=== PATIENT | male | born 1930 | race Caucasian/White ===

== ENCOUNTER → 2017-01-13 | Outpatient (CLI) | payer MEDICARE ==
[~2017-01-13] MED LIST: AMOXICILLIN500 M2 PO; ASPIRIN81 M1 PO; CARDIZEM CD240 MG PO; CARTIA XT240 MG PO; CO Q-1010 MG PO; DICLOFENAC NA25 MG PO; DILTIAZEM HCL240 M1 PO; FISH OIL500 M1 PO; FLOMAX0.4 MG PO; KEFLEX500 M1 PO; KLOR-CON M2020 MEQ PO; LASIX40 MG PO; LISINOPRIL10 MG PO; LOPRESSOR PO; LOPRESSOR25 MG PO; MIRALAX POWDER17 G1 PO; NEURONTIN100 MG PO; NORCO 5-325 TA1 EACH PO; OMEPRAZOLE20 M2 PO; OSTEO BI-FLEX1 EACH PO; PLAVIX75 M1 PO; PLAVIX75 MG PO; PRAVASTATIN SOD40 MG PO; TAMIFLU 75MG CA75 MG PO
[2017-01-13 11:07] LABS: BASO # 0.1 10*3/uL (0.0-0.1); BASO % 0.7 % (0.0-1.0); EOS # 0.1 10*3/uL (0.0-0.4); EOS % 1.7 % (1.0-4.0); HEMATOCRIT 50.4 % (42.0-52.0); HEMOGLOBIN 16.8 g/dl (14.0-18.0); LYMPH # 1.6 10*3/uL (1.3-4.4); LYMPH % 21.7 % (27.0-41.0); MEAN CELL VOLUME 90.3 fl (80.0-94.0); MEAN CORPUSCULAR HGB 30.1 pg (27.0-31.0); MEAN CORPUSCULAR HGB CONC 33.3 g/dl (33.0-37.0); MEAN PLATELET VOLUME 11.4 fl (9.6-12.3); MONO # 0.6 10*3/uL (0.1-1.0); MONO % 8.3 % (3.0-9.0); NEUT # 5.1 10*3/uL (2.3-7.9); NEUT % 67.1 % (47.0-73.0); PLATELET COUNT AUTOMATED 161 10*3/uL (130-400); RED BLOOD COUNT 5.58 10*6/uL (4.50-5.90); RED CELL DISTRI WIDTH 14.2 % (0-14.5); WHITE BLOOD COUNT 7.6 10*3/uL (4.8-10.8)
[2017-01-13 11:35] LABS: BUN 19 mg/dl (7-24); CARBON DIOXIDE 30 mmol/L (21-32); CHLORIDE 108 mmol/L (98-107); EST GLOM FILT AFRICAN AMERICAN > 60 ml/min; FREE T4 1.04 ng/dl (0.76-1.46); GLUCOSE 111 mg/dL (65-99); POTASSIUM 4.1 mmol/L (3.5-5.1); SODIUM 145 mmol/L (136-145)
[2017-01-14 08:19] LABS: PROSTATE SPECIFIC AG FREE 3.16 ng/mL; PSA % FREE 21.4 % (.)
== END | disposition home or self-care (01) ==
LOC: LAB 10:34
PROVIDERS: Internal Medicine
DX: I10 Essential (primary) hypertension (principal); N40.0 Benign prostatic hyperplasia without lower urinary tract symptoms; E03.9 Hypothyroidism, unspecified

== ENCOUNTER → 2017-05-04 | Outpatient (CLI) | payer MEDICARE ==
[2017-05-04 12:17] LABS: POTASSIUM 4.2 mmol/L (3.5-5.1)
[2017-05-05 08:11] LABS: PROSTATE SPECIFIC AG FREE 3.21 ng/mL; PSA % FREE 21.8 % (.)
== END | disposition home or self-care (01) ==
LOC: LAB 11:37
PROVIDERS: Internal Medicine
DX: I10 Essential (primary) hypertension (principal); N40.0 Benign prostatic hyperplasia without lower urinary tract symptoms

== ENCOUNTER → 2017-05-23 | Outpatient (CLI) | payer MEDICARE | END | disposition home or self-care (01) | LOC: CT 07:49 | DX: K57.30 Diverticulosis of large intestine without perforation or abscess without bleeding (principal); N28.89 Other specified disorders of kidney and ureter; I25.10 Atherosclerotic heart disease of native coronary artery without angina pectoris; N28.1 Cyst of kidney, acquired; Q25.46 Tortuous aortic arch; K40.90 Unilateral inguinal hernia, without obstruction or gangrene, not specified as recurrent; M47.899 Other spondylosis, site unspecified; M41.80 Other forms of scoliosis, site unspecified ==

== ENCOUNTER → 2017-07-30 | Outpatient (CLI) | payer MEDICARE ==
[2017-07-30 11:45] LABS: BUN 22 mg/dl (7-24); CHLORIDE 103 mmol/L (98-107); CREATININE 1.16 mg/dL (0.70-1.30); PHOSPHOROUS 2.6 mg/dL (2.5-4.9); SODIUM 142 mmol/L (136-145)
== END | disposition home or self-care (01) ==
LOC: LAB 11:05
PROVIDERS: Internal Medicine
DX: N18.3 Chronic kidney disease, stage 3 (moderate) (principal)

== ENCOUNTER 2017-09-26 18:36 | Emergency (ER) | payer MEDICARE ==
[~2017-09-26] VITALS: Wt 82.6 kg
[2017-09-26 19:22] LABS: BASO # 0.1 10*3/uL (0.0-0.1); BASO % 0.6 % (0.0-1.0); EOS # 0.1 10*3/uL (0.0-0.4); EOS % 1.1 % (1.0-4.0); HEMATOCRIT 48.2 % (42.0-52.0); HEMOGLOBIN 16.5 g/dl (14.0-18.0); LYMPH # 1.4 10*3/uL (1.3-4.4); LYMPH % 16.4 % (27.0-41.0); MEAN CELL VOLUME 89.4 fl (80.0-94.0); MEAN CORPUSCULAR HGB 30.6 pg (27.0-31.0); MEAN CORPUSCULAR HGB CONC 34.2 g/dl (33.0-37.0); MEAN PLATELET VOLUME 12.4 fl (9.6-12.3); MONO # 0.8 10*3/uL (0.1-1.0); MONO % 9.7 % (3.0-9.0); NEUT % 71.7 % (47.0-73.0); PLATELET COUNT AUTOMATED 206 10*3/uL (130-400); RED BLOOD COUNT 5.39 10*6/uL (4.50-5.90); RED CELL DISTRI WIDTH 13.9 % (0-14.5); WHITE BLOOD COUNT 8.4 10*3/uL (4.8-10.8)
[2017-09-26 20:02] LABS: ALBUMIN 3.5 gm/dl (3.1-4.5); ALKALINE PHOSPHATASE 86 U/L (45-117); BUN 20 mg/dl (7-24); CHLORIDE 106 mmol/L (98-107); CREATININE 1.09 mg/dL (0.70-1.30); LIPASE 204 U/L (73-393); SGOT/AST 15 IU/L (3-35); SGPT/ALT 17 U/L (12-78); SODIUM 141 mmol/L (136-145); TOTAL PROTEIN 6.6 gm/dL (6.4-8.2)
[2017-09-26 21:18] LABS: BILIRUBIN NEGATIVE (NEGATIVE); BLOOD NEGATIVE (NEGATIVE); CLARITY CLEAR (CLEAR); COLOR YELLOW (YELLOW); GLUCOSE NEGATIVE (NEGATIVE); KETONE NEGATIVE (NEGATIVE); LEUKO ESTERASE 1+ (NEGATIVE); NITRITE NEGATIVE (NEGATIVE); SPECIFIC GRAVITY 1.015 (1.005-1.030); UROBILINOGEN 0.2 E.U./dl (0.2-1.0)
[2017-09-26] MEDS ORDERED: AMINOPHYLLIN200 MG PO (21:43)
[2017-09-26] MEDS ORDERED: NORCO 5-325 TA1 EACH PO (21:43)
== END 2017-09-26 21:49 | disposition home or self-care (01) ==
LOC: ED 18:36
PROVIDERS: Physician Assistant
DX: N39.0 Urinary tract infection, site not specified (principal); M54.5 Low back pain; Z79.899 Other long term (current) drug therapy

== ENCOUNTER → 2017-12-01 | Outpatient (CLI) | payer MEDICARE ==
[~2017-12-01] MED LIST changes: +AMINOPHYLLIN200 MG PO
[2017-12-01 10:52] LABS: BASO % 0.5 % (0.0-1.0); EOS # 0.1 10*3/uL (0.0-0.4); EOS % 0.9 % (1.0-4.0); HEMATOCRIT 50.9 % (42.0-52.0); HEMOGLOBIN 16.7 g/dl (14.0-18.0); LYMPH # 1.2 10*3/uL (1.3-4.4); LYMPH % 16.2 % (27.0-41.0); MEAN CELL VOLUME 92.9 fl (80.0-94.0); MEAN CORPUSCULAR HGB 30.5 pg (27.0-31.0); MEAN CORPUSCULAR HGB CONC 32.8 g/dl (33.0-37.0); MEAN PLATELET VOLUME 10.8 fl (9.6-12.3); MONO # 0.6 10*3/uL (0.1-1.0); MONO % 8.3 % (3.0-9.0); NEUT # 5.5 10*3/uL (2.3-7.9); NEUT % 73.4 % (47.0-73.0); PLATELET COUNT AUTOMATED 143 10*3/uL (130-400); RED BLOOD COUNT 5.48 10*6/uL (4.50-5.90); RED CELL DISTRI WIDTH 13.5 % (0-14.5); WHITE BLOOD COUNT 7.5 10*3/uL (4.8-10.8)
[2017-12-01 11:26] LABS: CREATININE 1.46 mg/dL (0.70-1.30); POTASSIUM 4.4 mmol/L (3.5-5.1); TOTAL PROTEIN 7.3 gm/dL (6.4-8.2)
[2017-12-02 15:04] LABS: ANA DIRECT Negative (Negative); ANTISCLERODERMA-70 AB <0.2 AI (0.0-0.9)
== END | disposition home or self-care (01) ==
LOC: LAB 10:26
PROVIDERS: Internal Medicine
DX: M62.89 Other specified disorders of muscle (principal); Z79.899 Other long term (current) drug therapy

== ENCOUNTER 2018-08-27 14:06 | Inpatient (IN) | payer MEDICARE ==
[~2018-08-27] VITALS: Ht 175.2 cm; Wt 80.1 kg
--- NOTE | ~2018-08-27 | EKG ---
[place], [place] ELECTROCARDIOGRAM REPORT NAME: PIA ARROYO UNIT #: [id number] ROOM: 410 DOCTOR: ALINA DRAFT REPORT BIRTHDATE: [birth year] [facility] Test Date: 2018-08-27 Test Time: 15:41:36 Pat Name: PIA ARROYO Department: Room: 410 Gender: M [employer]: : 1930 Requested By: WILLIAM CHOWDHURY DNP Order Number: Reading MD: Walt Uriarte MD Measurements Intervals [place] Rate: 104 P: NE: QRS: 43 QRSD: 113 T: 29 QT: 363 QTc: 478 Interpretive Statements Atrial fibrillation Borderline intraventricular conduction delay Abnormal R-wave progression, early transition Borderline prolonged QT interval Electronically Signed On 08-31-2018 11:07:46 PST by Walt Uriarte MD CM:EKGRPT:ELECTROCARDIOGRAM REPORT [id number] WILLIAM FULLER DRAFT REPORT WILLIAM CHOWDHURY DNP
[2018-08-27 14:08] VITALS: BP 150/90
[2018-08-27 14:54] LABS: BASO % 0.4 % (0.0-1.0); EOS % 0.5 % (1.0-4.0); HEMATOCRIT 46.9 % (42.0-52.0); HEMOGLOBIN 15.6 g/dl (14.0-18.0); LYMPH # 0.9 10*3/uL (1.3-4.4); LYMPH % 11.2 % (27.0-41.0); MEAN CELL VOLUME 91.2 fl (80.0-94.0); MEAN CORPUSCULAR HGB 30.4 pg (27.0-31.0); MEAN CORPUSCULAR HGB CONC 33.3 g/dl (33.0-37.0); MEAN PLATELET VOLUME 10.8 fl (9.6-12.3); MONO # 0.8 10*3/uL (0.1-1.0); MONO % 10.4 % (3.0-9.0); NEUT # 6.1 10*3/uL (2.3-7.9); NEUT % 76.9 % (47.0-73.0); PLATELET COUNT AUTOMATED 146 10*3/uL (130-400); RED BLOOD COUNT 5.14 10*6/uL (4.50-5.90); RED CELL DISTRI WIDTH 13.6 % (0-14.5)
[2018-08-27 15:03] LABS: INTERNATIONAL NORM RATIO 0.9 (2.0-3.5)
[2018-08-27 15:10] LABS: ALBUMIN 3.6 gm/dl (3.1-4.5); ALKALINE PHOSPHATASE 92 U/L (45-117); BUN 18 mg/dl (7-24); CHLORIDE 104 mmol/L (98-107); CREATININE 1.12 mg/dL (0.70-1.30); POTASSIUM 4.1 mmol/L (3.5-5.1); SGOT/AST 15 IU/L (3-35); SGPT/ALT 20 U/L (12-78); SODIUM 139 mmol/L (136-145); TOTAL PROTEIN 6.9 gm/dL (6.4-8.2)
[2018-08-27 16:39] VITALS: BP 153/91
[2018-08-27 18:09] VITALS: BP 162/90
[2018-08-27] MEDS ORDERED: ZANTAC 300300 MG PO (18:36)
[2018-08-27] MEDS ORDERED: CYMBALTA60 MG PO (18:36)
[2018-08-27 20:00] VITALS: BP 136/90
[2018-08-28] VITALS: BP 147/84
[2018-08-28 06:04] LABS: ALBUMIN 3.3 gm/dl (3.1-4.5); ALKALINE PHOSPHATASE 96 U/L (45-117); BUN 19 mg/dl (7-24); CHLORIDE 107 mmol/L (98-107); POTASSIUM 4.5 mmol/L (3.5-5.1); SGOT/AST 14 IU/L (3-35); SGPT/ALT 18 U/L (12-78); SODIUM 141 mmol/L (136-145); TOTAL PROTEIN 6.3 gm/dL (6.4-8.2)
[2018-08-28 06:07] LABS: BASO % 0.4 % (0.0-1.0); EOS # 0.1 10*3/uL (0.0-0.4); EOS % 0.6 % (1.0-4.0); HEMATOCRIT 45.1 % (42.0-52.0); HEMOGLOBIN 15.1 g/dl (14.0-18.0); LYMPH # 1.1 10*3/uL (1.3-4.4); LYMPH % 11.2 % (27.0-41.0); MEAN CELL VOLUME 91.7 fl (80.0-94.0); MEAN CORPUSCULAR HGB 30.7 pg (27.0-31.0); MEAN CORPUSCULAR HGB CONC 33.5 g/dl (33.0-37.0); MEAN PLATELET VOLUME 11.2 fl (9.6-12.3); MONO # 1.2 10*3/uL (0.1-1.0); MONO % 12.2 % (3.0-9.0); NEUT # 7.6 10*3/uL (2.3-7.9); NEUT % 74.8 % (47.0-73.0); PLATELET COUNT AUTOMATED 157 10*3/uL (130-400); RED BLOOD COUNT 4.92 10*6/uL (4.50-5.90); RED CELL DISTRI WIDTH 13.7 % (0-14.5); WHITE BLOOD COUNT 10.2 10*3/uL (4.8-10.8)
[2018-08-28 08:00] VITALS: BP 170/90
[2018-08-28 12:00] VITALS: BP 128/77
[2018-08-28 16:00] VITALS: BP 109/65
[2018-08-28 20:00] VITALS: BP 109/70
[2018-08-29] VITALS: BP 116/79
[2018-08-29 08:00] VITALS: BP 118/76
[2018-08-29 16:00] VITALS: BP 106/61
[2018-08-29 20:00] VITALS: BP 95/55
[2018-08-30] VITALS: BP 115/70
[2018-08-30 08:00] VITALS: BP 111/72
[2018-08-30 12:03] VITALS: BP 120/74
[2018-08-30 16:41] VITALS: BP 108/70
[2018-08-30 20:00] VITALS: BP 100/58; BP 108/70
[2018-08-31] VITALS: BP 110/63
[2018-08-31 06:26] LABS: BASO # 0.1 10*3/uL (0.0-0.1); BASO % 0.8 % (0.0-1.0); EOS # 0.1 10*3/uL (0.0-0.4); EOS % 1.7 % (1.0-4.0); HEMATOCRIT 48.3 % (42.0-52.0); HEMOGLOBIN 15.5 g/dl (14.0-18.0); LYMPH # 1.6 10*3/uL (1.3-4.4); LYMPH % 22.4 % (27.0-41.0); MEAN CELL VOLUME 92.2 fl (80.0-94.0); MEAN CORPUSCULAR HGB 29.6 pg (27.0-31.0); MEAN CORPUSCULAR HGB CONC 32.1 g/dl (33.0-37.0); MEAN PLATELET VOLUME 11.1 fl (9.6-12.3); MONO # 0.7 10*3/uL (0.1-1.0); MONO % 9.2 % (3.0-9.0); NEUT # 4.7 10*3/uL (2.3-7.9); NEUT % 64.8 % (47.0-73.0); PLATELET COUNT AUTOMATED 193 10*3/uL (130-400); RED BLOOD COUNT 5.24 10*6/uL (4.50-5.90); RED CELL DISTRI WIDTH 13.6 % (0-14.5); WHITE BLOOD COUNT 7.2 10*3/uL (4.8-10.8)
[2018-08-31 06:39] LABS: ALBUMIN 3.4 gm/dl (3.1-4.5); ALKALINE PHOSPHATASE 103 U/L (45-117); BUN 19 mg/dl (7-24); CHLORIDE 104 mmol/L (98-107); CREATININE 1.01 mg/dL (0.70-1.30); SGOT/AST 24 IU/L (3-35); SGPT/ALT 27 U/L (12-78); SODIUM 139 mmol/L (136-145); TOTAL PROTEIN 6.6 gm/dL (6.4-8.2)
[2018-08-31 08:00] VITALS: BP 120/53
[2018-08-31 12:00] VITALS: BP 100/57
[2018-08-31 16:00] VITALS: BP 96/58
[2018-08-31 20:00] VITALS: BP 102/58
[2018-09-01] VITALS: BP 106/56
[2018-09-01 08:00] VITALS: BP 127/70
[2018-09-01 12:00] VITALS: BP 90/58
[2018-09-01] MEDS ORDERED: KEFLEX500 M1 PO (13:40)
== END 2018-09-01 15:37 | disposition home health service (06) | DRG 593 ==
LOC: ED 14:06 → EDHOLD 16:27 → 4E 16:27
PROVIDERS: Internal Medicine; Nurse Practitioner Family
DX: L97.529 Non-pressure chronic ulcer of other part of left foot with unspecified severity (principal); T69.022A Immersion foot, left foot, initial encounter; E44.1 Mild protein-calorie malnutrition; L03.032 Cellulitis of left toe; R26.2 Difficulty in walking, not elsewhere classified; I48.91 Unspecified atrial fibrillation; I73.9 Peripheral vascular disease, unspecified; M54.16 Radiculopathy, lumbar region; I25.10 Atherosclerotic heart disease of native coronary artery without angina pectoris; I11.0 Hypertensive heart disease with heart failure; I50.9 Heart failure, unspecified; Z82.3 Family history of stroke; Z82.49 Family history of ischemic heart disease and other diseases of the circulatory system; Z95.5 Presence of coronary angioplasty implant and graft; Z79.899 Other long term (current) drug therapy; Z68.25 Body mass index [BMI] 25.0-25.9, adult; Z79.02 Long term (current) use of antithrombotics/antiplatelets